=== PATIENT | female | born 1960 | race Caucasian/White ===

== ENCOUNTER 2017-10-30 13:24 | Day surgery (SDC) | payer OTHER ==
[2017-10-30] MEDS ORDERED: LACTATED RINGER'S 1,000 ML IV* (13:30)
[2017-10-30] MEDS ORDERED: MIDAZOLAM 1 MG/ML 2 ML INJ (15:07)
[2017-10-30] MEDS ORDERED: FENTAnyl 50 MCG/ML VIAL (15:07)
[2017-10-30] MEDS ORDERED: LIDOCAINE 1% (MPF) 30 ML INJ (15:22)
[2017-10-30] MEDS ORDERED: ONDANSETRON 4 MG INJ (16:03)
[2017-10-30] MEDS: BUPIVACAINE 0.5% (SDV) 30 ML INJ (16:19)
[2017-10-30] MEDS ORDERED: PROPOFOL 20 ML (16:27)
[2017-10-30] MEDS ORDERED: LIDOCAINE 100 MG SYRINGE (16:27)
[2017-10-30] MEDS ORDERED: CLINDAMYCIN 900 MG/D5W (PMX) 50 ML IVPB (16:27)
[2017-10-30] MEDS ORDERED: METOCLOPRAMIDE 10 MG INJ IV (17:00)
[2017-10-30] MEDS ORDERED: KETOROLAC 30 MG INJ IV (17:00)
[2017-10-30] MEDS ORDERED: IPRATROPIUM (NEB) 0.5 MG/2.5 ML AMP HHN (17:00)
[2017-10-30] MEDS ORDERED: HYDROmorphONE (0.2 MG/ML) 10ML SYG IV ×2 (17:00)
[2017-10-30] MEDS ORDERED: FENTAnyl 50 MCG/ML VIAL IV ×2 (17:00)
[2017-10-30] MEDS ORDERED: KETOROLAC 15 MG INJ IV (17:00)
[2017-10-30] MEDS ORDERED: DIPHENHYDRAMINE 50 MG INJ IV (17:00)
[2017-10-30] MEDS ORDERED: ONDANSETRON 4 MG INJ IV (17:00)
[2017-10-30] MEDS ORDERED: MEPERIDINE 25 MG INJ IV (17:00)
== END 2017-10-30 18:34 | disposition home or self-care (01) ==
LOC: SDS 13:24
DX: G56.01 Carpal tunnel syndrome, right upper limb (principal); M65.341 Trigger finger, right ring finger; E11.9 Type 2 diabetes mellitus without complications; F17.200 Nicotine dependence, unspecified, uncomplicated
CPT/HCPCS: 26055; 82962

== ENCOUNTER 2018-04-27 12:04 | Emergency (ER) | payer OTHER ==
[2018-04-27 13:17] LABS: ADD MAN DIFF? NO
[2018-04-27 13:23] LABS: WHITE BLOOD COUNT 7.6 10^3/ul (4.8-10.8)
[2018-04-27 13:23] LABS: BASOPHIL # 0.1 10^3/ul (0.0-0.1); BASOPHILS % 0.7 % (0.0-2.0); EOSINOPHILS # 0.1 10^3/ul (0.0-0.5); EOSINOPHILS % 1.3 % (0.0-7.0); HEMATOCRIT 41.2 % (37.0-47.0); HEMOGLOBIN 13.6 g/dl (12.0-16.0); IMMATURE GRANS #M 0.02 10^3/ul; IMMATURE GRANS % (M) 0.3 %; LYMPHOCYTES # 1.8 10^3/ul (0.8-2.9); LYMPHOCYTES % 23.6 % (15.0-51.0); MEAN CORPUSCULAR HEMOGLOBIN 29.9 pg (29.0-33.0); MEAN CORPUSCULAR VOLUME 90.5 fl (82.0-101.0); MONOCYTE # 0.4 10^3/ul (0.3-0.9); MONOCYTES % 4.7 % (0.0-11.0); NEUTROPHIL # 5.3 10^3/ul (1.6-7.5); NEUTROPHILS % 69.4 % (39.0-77.0); PLATELET COUNT 318 10^3/UL (140-415); RED BLOOD COUNT 4.55 10^6/ul (4.20-5.40); RED CELL DISTRIBUTION WIDTH 15.1 % (11.5-14.5)
[2018-04-27 13:30] LABS: ADD UMIC YES; UR ASCORBIC ACID NEGATIVE (NEGATIVE); UR BILIRUBIN (Dip) NEGATIVE (NEGATIVE); UR BLOOD (Dip) NEGATIVE (NEGATIVE); UR CALCIUM OXALATE CRYSTAL MODERATE /HPF (NONE SEEN); UR CLARITY CLOUDY (CLEAR); UR COLOR YELLOW (YELLOW); UR GLUCOSE (Dip) NEGATIVE (NEGATIVE); UR KETONES (Dip) NEGATIVE (NEGATIVE); UR LEUKOCYTE ESTERASE (Dip) 1+ Leu/ul (NEGATIVE); UR MUCUS MANY /HPF (NONE SEEN); UR NITRITE (Dip) NEGATIVE (NEGATIVE); UR RBC 0 /HPF (0-5); UR SQUAMOUS EPITHELIAL CELL MODERATE /HPF (FEW); UR TOTAL PROTEIN (Dip) NEGATIVE (NEGATIVE); UR UROBILINOGEN (Dip) 2+ mg/dL (NEGATIVE); UR WBC 12 /HPF (0-5)
[2018-04-27 13:41] LABS: ALANINE AMINOTRANSFERASE 15 IU/L (13-69); ALBUMIN/GLOBULIN RATIO 1.11; ALKALINE PHOSPHATASE 129 IU/L (42-121); ANION GAP 14 (8-16); ASPARTATE AMINO TRANSFERASE 19 IU/L (15-46); BILIRUBIN,INDIRECT 0.5 mg/dl (0-1.1); BILIRUBIN,TOTAL 0.5 mg/dl (0.2-1.3); BLOOD UREA NITROGEN 8 mg/dl (7-20); CALCIUM 9.5 mg/dl (8.4-10.2); CARBON DIOXIDE 20 mmol/L (21-31); CHLORIDE 112 mmol/L (97-110); CREATININE 0.88 mg/dl (0.44-1.00); GLUCOSE 92 mg/dl (70-220); LIPASE 117 U/L (23-300); POTASSIUM 3.8 mmol/L (3.5-5.1); SODIUM 142 mmol/L (135-144); TOTAL PROTEIN 7.6 g/dl (6.1-8.1)
[2018-04-27 13:50] LABS: B-TYPE NATRIURETIC PEPTIDE 29 PG/ML (0-125)
[2018-04-27 13:59] LABS: FREE THYROXINE INDEX (Calc) 2.03 ug/ml (0.65-3.89); T3 UPTAKE 31.7 % (23.5-40.5); T4 (THYROXINE) 6.4 ug/dl (5.5-11.0)
== END 2018-04-27 14:49 | disposition home or self-care (01) ==
LOC: FTE 12:04
DX: N39.0 Urinary tract infection, site not specified (principal); N83.202 Unspecified ovarian cyst, left side; Z79.84 Long term (current) use of oral hypoglycemic drugs; Z79.01 Long term (current) use of anticoagulants
CPT/HCPCS: 36415; 71045; 76830; 76856; 80053; 81001; 81025; 83690; 83880; 84436; 84443; 84479; 85025; 93005; 99285-25

== ENCOUNTER 2018-08-08 15:12 | Emergency (ER) | payer OTHER ==
[2018-08-08 17:48] LABS: ADD MAN DIFF? NO
[2018-08-08 17:52] LABS: BASOPHIL # 0.1 10^3/ul (0.0-0.1); BASOPHILS % 0.7 % (0.0-2.0); EOSINOPHILS # 0.2 10^3/ul (0.0-0.5); EOSINOPHILS % 1.5 % (0.0-7.0); HEMATOCRIT 46.3 % (37.0-47.0); HEMOGLOBIN 14.8 g/dl (12.0-16.0); LYMPHOCYTES # 3.7 10^3/ul (0.8-2.9); LYMPHOCYTES % 36.3 % (15.0-51.0); MEAN CORPUSCULAR HEMOGLOBIN 29.9 pg (29.0-33.0); MEAN CORPUSCULAR VOLUME 93.5 fl (82.0-101.0); MONOCYTE # 0.6 10^3/ul (0.3-0.9); MONOCYTES % 5.5 % (0.0-11.0); NEUTROPHIL # 5.7 10^3/ul (1.6-7.5); NEUTROPHILS % 55.7 % (39.0-77.0); PLATELET COUNT 370 10^3/UL (140-415); RED BLOOD COUNT 4.95 10^6/ul (4.20-5.40)
[2018-08-08 17:52] LABS: WHITE BLOOD COUNT 10.2 10^3/ul (4.8-10.8)
[2018-08-08 18:10] LABS: ADD UMIC YES; UR ASCORBIC ACID NEGATIVE (NEGATIVE); UR BACTERIA FEW /HPF (NONE SEEN); UR BILIRUBIN (Dip) NEGATIVE (NEGATIVE); UR BLOOD (Dip) NEGATIVE (NEGATIVE); UR CLARITY CLEAR (CLEAR); UR COLOR YELLOW (YELLOW); UR GLUCOSE (Dip) NEGATIVE (NEGATIVE); UR KETONES (Dip) NEGATIVE (NEGATIVE); UR LEUKOCYTE ESTERASE (Dip) TRACE Leu/ul (NEGATIVE); UR MUCUS FEW /HPF (NONE SEEN); UR NITRITE (Dip) NEGATIVE (NEGATIVE); UR RBC 1 /HPF (0-5); UR SPECIFIC GRAVITY (Dip) 1.018 (1.003-1.030); UR TOTAL PROTEIN (Dip) NEGATIVE (NEGATIVE); UR UROBILINOGEN (Dip) 1+ mg/dL (NEGATIVE); UR WBC 4 /HPF (0-5)
[2018-08-08 18:11] LABS: INR 0.93; PROTIME 12.5 Sec (11.9-14.9)
[2018-08-08 18:14] LABS: ALANINE AMINOTRANSFERASE 14 IU/L (13-69); ALBUMIN 4.9 g/dl (3.3-4.9); ALBUMIN/GLOBULIN RATIO 1.32; ALKALINE PHOSPHATASE 154 IU/L (42-121); ANION GAP 11 (5-13); ASPARTATE AMINO TRANSFERASE 20 IU/L (15-46); BILIRUBIN,INDIRECT 0.4 mg/dl (0-1.1); BILIRUBIN,TOTAL 0.4 mg/dl (0.2-1.3); BLOOD UREA NITROGEN 9 mg/dl (7-20); CALCIUM 9.5 mg/dl (8.4-10.2); CARBON DIOXIDE 23 mmol/L (21-31); CHLORIDE 105 mmol/L (97-110); CREATININE 0.76 mg/dl (0.44-1.00); Estimated GFR > 60 mL/min (>60); GLUCOSE 89 mg/dl (70-220); POTASSIUM 3.4 mmol/L (3.5-5.1); SODIUM 139 mmol/L (135-144); TOTAL PROTEIN 8.6 g/dl (6.1-8.1)
== END 2018-08-08 22:01 | disposition home or self-care (01) ==
LOC: E/R 15:12
DX: N93.9 Abnormal uterine and vaginal bleeding, unspecified (principal); N95.0 Postmenopausal bleeding; Z79.84 Long term (current) use of oral hypoglycemic drugs
CPT/HCPCS: 36415; 76830; 76856; 80053; 81001; 85025; 85610; 86850; 86900; 86901; 99284-25

== ENCOUNTER 2018-12-25 05:26 | Day surgery (SDC) | payer OTHER ==
[2018-12-25] MEDS ORDERED: CLINDAMYCIN 900 MG/D5W (PMX) 50 ML IVPB ×2 (06:00→07:02)
[2018-12-25] MEDS: LACTATED RINGER'S 1,000 ML IV* (06:46)
[2018-12-25] MEDS ORDERED: SEVOFLURANE 15 MIN (07:00)
[2018-12-25] MEDS ORDERED: PROPOFOL 20 ML (07:01)
[2018-12-25] MEDS ORDERED: LIDOCAINE 2% (SDV) 5 ML INJ (07:01)
[2018-12-25] MEDS ORDERED: MIDAZOLAM 1 MG/ML 2 ML INJ (07:02)
[2018-12-25] MEDS ORDERED: FENTAnyl 50 MCG/ML VIAL (07:02)
[2018-12-25] MEDS ORDERED: ONDANSETRON 4 MG INJ (07:57)
[2018-12-25] MEDS ORDERED: METOCLOPRAMIDE 10 MG INJ (07:58)
[2018-12-25] MEDS ORDERED: DEXAMETHASONE 4 MG/ML 5 ML INJ (07:58)
[2018-12-25] MEDS ORDERED: FAMOTIDINE 20 MG INJ (07:58)
[2018-12-25] MEDS ORDERED: ONDANSETRON 4 MG INJ IV (08:30)
[2018-12-25] MEDS ORDERED: OXYCODONE/ACETAMINOPHEN (5/325) TAB PO ×2 (08:30)
[2018-12-25] MEDS ORDERED: MEPERIDINE 25 MG INJ IV (08:30)
[2018-12-25] MEDS ORDERED: FENTAnyl 50 MCG/ML VIAL IV ×3 (08:30)
[2018-12-25] MEDS ORDERED: ALBUTEROL 0.083% (NEB) 2.5 MG/3 ML AMP HHN (08:30)
[2018-12-25] MEDS: BUPIVACAINE 0.5% (SDV) 30 ML INJ (08:58)
[2018-12-25] MEDS: CLINDAMYCIN 2% 40 GM VAG CR VAG (09:00)
== END 2018-12-25 11:12 | disposition home or self-care (01) ==
LOC: SDS 05:26
DX: N81.3 Complete uterovaginal prolapse (principal); E11.9 Type 2 diabetes mellitus without complications; J45.909 Unspecified asthma, uncomplicated; F41.8 Other specified anxiety disorders
CPT/HCPCS: 57240; 82962; 88305